=== PATIENT | female | born 2000 | race African-American/Black ===

== ENCOUNTER → 2018-06-08 | Outpatient (CLI) | payer OTHER ==
[2015-10-06 05:40] VITALS: BP 94/46
[~2018-06-08] MED LIST: METR70GE14 VG; MULT-130 PO; PROM25SU32 RC
--- NOTE | 2018-06-08 10:12 | KCIC ---
EXAM: Ultrasound OB <14 weeks CLINICAL HISTORY: Evaluate for intrauterine gestation and dates COMPARISON: None available. TECHNIQUE: transabdominal sonography was performed FINDINGS: An intrauterine gestational sac is present. An embryo is identified .Cardiac activity is visualized and documented at a rate of 123 beats per minute. There is no subchorionic fluid collection. Based on a crown rump length averaging 0.37 cm, the estimated gestational age is 6 weeks, 0 days. Estimated date of delivery is 02/01/2019. The right ovary measures 4.4 x 2 x 2.7 cm. The left ovary measures 3.2 x 1.4 x 2.6 cm. No definite adnexal mass. There is no pelvic free fluid. IMPRESSION: 1. Single live intrauterine gestation with mean sonographic age of 6 weeks,0 days. The estimated date of delivery is 02/01/19. 2. No abnormal adnexal masses Electronically signed by: Sin Mckeon MD (06/08/2018 10:09 AM) [facility]
== END | disposition home or self-care (01) ==
LOC: KCIC US 07:45
PROVIDERS: ATTEND Family Medicine
DX: Z34.91 Encounter for supervision of normal pregnancy, unspecified, first trimester (principal); Z3A.01 Less than 8 weeks gestation of pregnancy
CPT/HCPCS: 76801

== ENCOUNTER 2018-06-16 14:54 | Emergency (ER) | payer OTHER ==
[~2018-06-16] VITALS: Ht 175.3 cm; Wt 104.3 kg
[~2018-06-16 14:54] MED LIST changes: -METR70GE14 VG; -PROM25SU32 RC
[2018-06-16 15:00] VITALS: BP 138/64
[2018-06-16] MEDS ORDERED: IV NORMAL SALINE 1000ML BAG 1,000 ML IV SCH (15:18)
[2018-06-16] MEDS ORDERED: PROMETHAZINE 12.5 MG TABLET. PO ONE (15:30)
--- NOTE | 2018-06-16 15:30 | PHYS DOC ---
Past Medical History Past Medical History: No Pertinent History Past Surgical History: Alcohol Use: None Drug Use: None Adult General Chief Complaint Chief Complaint: VOMITING IN HPI HPI Patient is a 17-year-old female, at about 7 weeks of gestational presents to the emergency department for evaluation. This patient states for the past week she has had "morning sickness". She states she has a decreased appetite, and has been vomiting when she tries to eat. She has not had any significant abdominal pain. She denies any significant vaginal bleeding or discharge, urinary symptoms, or hematemesis. She has not had any diarrhea. She has had care with her primary care provider, Dr. Whipple, and has had an ultrasound which she reports was normal. There are no alleviating or exacerbating factors to her symptoms. She is currently taking vitamins , no other medications. Review of Systems Review of Systems Constitutional: Denies fever or chills [] Eyes: Denies change in visual acuity, redness, or eye pain [] HENT: Denies nasal congestion or sore throat [] Respiratory: Denies cough or shortness of breath [] Cardiovascular: The patient denies any shortness of breath, chest pain, palpitations, or orthopnea [] GI: Denies abdominal pain, bloody stools or diarrhea [] : Denies dysuria or hematuria [] Musculoskeletal: Denies back pain or joint pain [] Integument: Denies rash or skin lesions [] Neurologic: Denies headache, focal weakness or sensory changes [] Endocrine: Denies polyuria or polydipsia [] All other systems were reviewed and found to be within normal limits, except as documented in this note. Current Medications Current Medications Current Medications Medications (Trade) Dose Ordered Sig/Vance Start Time Stop Time Status Last Admin Dose Admin Prochlorperazine Edisylate (Compazine) 10 mg 1X ONCE 06/16/18 15:45 06/16/18 15:46 DC 06/16/18 15:48 10 MG Promethazine HCl (Phenergan) 25 mg 1X ONCE 06/16/18 15:30 06/16/18 15:41 DC Sodium Chloride 1,000 ml @ 1,000 mls/hr Q1H 06/16/18 15:18 06/16/18 16:17 06/16/18 15:36 1,000 MLS/HR Allergies Allergies Allergies Coded Allergies Type Severity Reaction Last Updated Verified No Known Drug Allergies 06/17/15 No Physical Exam Physical Exam PHYSICAL EXAM: CONSTITUTIONAL: Well developed, well nourished HEAD: normocephalic, atraumatic EENT: PERRL, EOMI. Conjunctivae normal color, sclerae non-icteric; moist mucous membranes. NECK: Supple, non-tender; no meningismus. LUNGS: Lungs CTA, breathing even and unlabored. Normal air movement. HEART: Regular rate and rhythm, no murmur CHEST: No deformity; non-tender ABDOMEN: The abdomen is soft, and non-tender, no masses or bruits. EXTREM: Normal ROM; no deformity, no calf tenderness. Normal pulses palpable in all extremities. There is no pedal edema. SKIN: No rash; no diaphoresis NEURO: Alert; normal speech and cognition; CN's grossly intact; strength grossly intact without focal deficit. BACK: No CVA TTP. Current Patient Data Vital Signs Vital Signs Date Time Temp Pulse Resp B/P (MAP) Pulse Ox O2 Delivery O2 Flow Rate FiO2 06/16/18 15:00 98.4 71 18 138/64 (88) 97 Room Air 98.4 Lab Values Laboratory Tests Test 06/16/18 12:08 06/16/18 15:09 06/16/18 15:40 Urine Collection Type Unknown Urine Color Yellow Urine Clarity Cloudy Urine pH 7.5 Urine Specific Baylis 1.025 Urine Protein Negative mg/dL (NEG-TRACE) Urine Glucose (UA) Negative mg/dL (NEG) Urine Ketones (Stick) 40 mg/dL (NEG) Urine Blood Negative (NEG) Urine Nitrite Negative (NEG) Urine Bilirubin Negative (NEG) Urine Urobilinogen Dipstick 1.0 mg/dL (0.2 mg/dL) Urine Leukocyte Esterase Large (NEG) Urine RBC 0 /HPF (0-2) Urine WBC >40 /HPF (0-4) Urine Squamous Epithelial Cells Many /LPF Urine Bacteria Many /HPF (0-FEW) Urine Mucus Marked /LPF Urine Trichomonas Present POC Urine HCG, Qualitative Hcg positive (Negative) White Blood Count 6.2 x10^3/uL (4.0-11.0) Red Blood Count 4.29 x10^6/uL (3.50-5.40) Hemoglobin 12.0 g/dL (12.0-15.5) Hematocrit 36.3 % (36.0-47.0) Mean Corpuscular Volume 85 fL (79-100) Mean Corpuscular Hemoglobin 28 pg (25-35) Mean Corpuscular Hemoglobin Concent 33 g/dL (31-37) Red Cell Distribution Width 14.8 % (11.5-14.5) H Platelet Count 263 x10^3/uL (140-400) Neutrophils (%) (Auto) 70 % (31-73) Lymphocytes (%) (Auto) 21 % (24-48) L Monocytes (%) (Auto) 8 % (0-9) Eosinophils (%) (Auto) 1 % (0-3) Basophils (%) (Auto) 1 % (0-3) Neutrophils # (Auto) 4.4 x10^3uL (1.8-7.7) Lymphocytes # (Auto) 1.3 x10^3/uL (1.0-4.8) Monocytes # (Auto) 0.5 x10^3/uL (0.0-1.1) Eosinophils # (Auto) 0.0 x10^3/uL (0.0-0.7) Basophils # (Auto) 0.0 x10^3/uL (0.0-0.2) Laboratory Tests 06/16/18 15:40 EKG EKG [] Radiology/Procedures Radiology/Procedures [] Course & Med Decision Making Course & Med Decision Making Pertinent Lab studies reviewed. (See chart for details) [4:05 PM: The patient notified her nursing she would like to leave the hospital immediately. I went to speak with the patient but was unable to convince her to stay and finish her treatment. She has received about 500 mL of IV fluids. Her urinalysis has been reviewed and it looks that she has Trichomonas and possibly a UTI as well. She declined further pelvic evaluation at this time but has an appointment with her [employer], which I encouraged her to keep.] Patient initially declined Phenergan tablets that were prescribed in the ER, as she states she cannot swallow pills. Thus, she will need Flagyl vaginally and Phenergan suppositories. Dragon Disclaimer Dragon Disclaimer This electronic medical record was generated, in whole or in part, using a voice recognition dictation system. Departure Departure Impression: Primary Impression: Nausea and vomiting during Additional Impressions: Trichomonas infection UTI (urinary tract infection) Disposition: 07 AGAINST MEDICAL ADVICE Condition: STABLE Referrals: JOHANNA WHIPPLE MD (PCP) Patient Instructions: Hyperemesis Gravidarum, Trichomoniasis Additional Instructions: Return to medical care for any new or worsening symptoms, or if your agreeable to complete her ER visit and undergo further care. Scripts Metronidazole (METROGEL-VAGINAL) 70 Gm Gel.w.appl 1 APPFUL VG QHS for 7 Days, #7 EA Prov: ARSALAN HODGE MD 06/16/18 Promethazine HCl (Phenergan) 25 Mg Supp.rect 25 MG RC Q6H for Nausea/vomiting, #15 SUPP.RECT Prov: ARSALAN HODGE MD 06/16/18 Problem Qualifiers ARSALAN HODGE MD Jun 16, 2018 15:30
[2018-06-16 15:31] LABS: BILIRUBIN,URINE NEGATIVE (NEG); CLARITY,URINE CLOUDY; COLOR,URINE YELLOW; NITRITE,URINE NEGATIVE (NEG); PH,URINE 7.5; PROTEIN,URINE NEGATIVE (NEG-TRACE)
[2018-06-16 15:43] LABS: SQUAMOUS EPITHELIAL CELL,UR MANY /LPF
[2018-06-16 15:44] LABS: BACTERIA,URINE MANY /HPF (0-FEW); RBC,URINE 0 /HPF (0-2); TRICHOMONAS,URINE PRESENT; WBC,URINE >40 /HPF (0-4)
[2018-06-16 15:45] LABS: BASO % 1 % (0-3); EOS % 1 % (0-3); HEMATOCRIT 36.3 % (36.0-47.0); LYMPH # 1.3 x10^3/uL (1.0-4.8); LYMPH % 21 % (24-48); MEAN CORPUSCULAR HEMOGLOBIN 28 pg (25-35); MEAN CORPUSCULAR HGB CONC 33 g/dL (31-37); MEAN CORPUSCULAR VOLUME 85 fL (79-100); MONO # 0.5 x10^3/uL (0.0-1.1); MONO % 8 % (0-9); NEUT # 4.4 x10^3uL (1.8-7.7); NEUT % 70 % (31-73); PLATELET COUNT 263 x10^3/uL (140-400); RED BLOOD COUNT 4.29 x10^6/uL (3.50-5.40); RED CELL DISTRIBUTION WIDTH 14.8 % (11.5-14.5); WHITE BLOOD COUNT 6.2 x10^3/uL (4.0-11.0)
[2018-06-16] MEDS ORDERED: PROCHLORPERAZINE 10 MG/2 ML VIAL. IV ONE (15:45)
[2018-06-16 16:05] LABS: CREATININE 0.6 mg/dL (0.6-1.0); GFR 155.8; POTASSIUM 3.8 mmol/L (3.5-5.1)
[2018-06-16 16:10] LABS: ALBUMIN 3.4 g/dL (3.4-5.0); ALBUMIN/GLOBULIN RATIO 0.7 (1.0-1.7); TOTAL BILIRUBIN 0.2 mg/dL (0.2-1.0)
[2018-06-16] MEDS ORDERED: PROM25SU32 RC (16:12)
[2018-06-16] MEDS ORDERED: METR70GE14 VG (16:12)
== END 2018-06-16 16:05 | disposition left against medical advice (07) ==
LOC: ER 14:54
DX: O23.41 Unspecified infection of urinary tract in pregnancy, first trimester (principal); O23.591 Infection of other part of genital tract in pregnancy, first trimester; A59.9 Trichomoniasis, unspecified; O21.9 Vomiting of pregnancy, unspecified; Z3A.01 Less than 8 weeks gestation of pregnancy
CPT/HCPCS: 36415; 80053; 81001; 81025; 83690; 85025; 87086; 96361; 96374; 99283; J0780; J7030; Q0169

== ENCOUNTER → 2018-09-20 | Outpatient (CLI) | payer OTHER ==
[~2018-09-20] MED LIST changes: +METR70GE14 VG; +PROM25SU32 RC
--- NOTE | 2018-09-20 17:00 | RAD ---
Obstetrical ultrasound, 09/20/2018: HISTORY: Routine screening There is a single intrauterine fetus in a cephalic orientation. The biparietal diameter measures 5.2 cm compatible with a gestational age of 21-22 weeks. The average gestational age based on all of the measurements is 21 weeks and 5 days yielding a sonographic EDC of 01/26/2019. This correlates well with the EDC of 02/01/2019 established on the previous ultrasound exam of 06/08/2018. Normal activity and heart motion were seen. The heart rate is 150 bpm. A four-chamber heart is evident. Fluid is identified in the bladder and stomach. The visualized portions of the kidneys and spine are unremarkable. A three-vessel umbilical cord is identified with a normal cord insertion site. A normal amount of amniotic fluid is present. The placenta is located anteriorly. There is no evidence of placenta previa. The cervical length is approximately 4 cm. IMPRESSION: Single viable intrauterine fetus of 21-22 weeks gestational age demonstrating satisfactory interval growth since 06/08/2018. Electronically signed by: Ruddy Arango MD (09/20/2018 4:57 PM) [facility]
== END | disposition home or self-care (01) ==
LOC: US 14:21
PROVIDERS: ATTEND Family Medicine
DX: Z34.92 Encounter for supervision of normal pregnancy, unspecified, second trimester (principal); Z3A.22 22 weeks gestation of pregnancy
CPT/HCPCS: 76805

== ENCOUNTER 2020-06-10 19:04 | Emergency (ER) | payer MEDICAID, OTHER ==
[~2020-06-10] VITALS: Ht 175.3 cm; Wt 109.1 kg
--- NOTE | 2020-06-10 19:56 | RAD ---
PA lateral chest x-rays HISTORY: Chest wall pain. FINDINGS: Heart size normal. Mediastinal silhouette is normal. No pneumothorax, pulmonary opacities o r pleural effusions. Bones are unremarkable. IMPRESSION: No acute process. Electronically signed by: Jean Carlos Mccracken MD (06/10/2020 7:53 PM) [facility]
--- NOTE | 2020-06-10 20:50 | PHYS DOC ---
Past Medical History Past Medical History: No Pertinent History Past Surgical History: Smoking Status: Never Smoker Alcohol Use: None Drug Use: None Adult General Chief Complaint Chief Complaint: BREAST PROBLEM HPI HPI Patient is a 19 year old female presented to the emergency department complaining of new onset of left anterior chest wall pain and swelling adjacent to left breast. Patient states that she noted a lump of the left medial breast margin. States that noticed that this afternoon and states that it has increased in size and severity. Notes pain in the area. Denies any fever, chills, nausea, vomiting, abnormal or discharge. Review of Systems Review of Systems Constitutional: Denies fever or chills [] Eyes: Denies change in visual acuity, redness, or eye pain [] HENT: Denies nasal congestion or sore throat [] Respiratory: Denies cough or shortness of breath [] Cardiovascular: No additional information not addressed in HPI [] GI: Denies abdominal pain, nausea, vomiting, bloody stools or diarrhea [] : Denies dysuria or hematuria [] Musculoskeletal: Denies back pain or joint pain [] Integument: Denies rash or skin lesions [] Neurologic: Denies headache, focal weakness or sensory changes [] Endocrine: Denies polyuria or polydipsia [] All other systems were reviewed and found to be within normal limits, except as documented in this note. Allergies Allergies Allergies Coded Allergies Type Severity Reaction Last Updated Verified No Known Drug Allergies 06/17/15 No Physical Exam Physical Exam Constitutional: Well developed, well nourished, no acute distress, non-toxic appearance. [] HENT: Normocephalic, atraumatic, bilateral external ears normal, oropharynx moist, no oral exudates, nose normal. [] Eyes: PERRLA, EOMI, conjunctiva normal, no discharge. [] Neck: Normal range of motion, no tenderness, supple, no stridor. [] Cardiovascular:Heart rate regular rhythm, no murmur [] Lungs & Thorax: Bilateral breath sounds clear to auscultation [] Abdomen: Bowel sounds normal, soft, no tenderness, no masses, no pulsatile masses. [] Skin: Warm, dry, no erythema, no rash. [] Back: No tenderness, no CVA tenderness. [] Extremities: No tenderness, no cyanosis, no clubbing, ROM intact, no edema. [] Neurologic: Alert and oriented X 3, normal motor function, normal sensory function, no focal deficits noted. [] Psychologic: Affect normal, judgement normal, mood normal. [] Current Patient Data Vital Signs Vital Signs Date Time Temp Pulse Resp B/P (MAP) Pulse Ox O2 Delivery O2 Flow Rate FiO2 06/10/20 19:14 97.9 83 16 146/59 (88) 99 Room Air 97.9 Lab Values Laboratory Tests Test 06/10/20 19:26 POC Urine HCG, Qualitative Hcg negative (Negative) EKG EKG [] Radiology/Procedures Radiology/Procedures [] Course & Med Decision Making Course & Med Decision Making Pertinent Labs and Imaging studies reviewed. (See chart for details) 19F with nonspecific lesion on the anterior chest wall in the left breast margin. Will obtain x-ray to make sure there is no evidence of acute calcification. Bedside ultrasound demonstrates no underlying fluid collection or drainable abscess. Suspect fibrocystic change. Dragon Disclaimer Dragon Disclaimer This electronic medical record was generated, in whole or in part, using a voice recognition dictation system. Departure Departure Impression: Primary Impression: Fibrocystic breast changes Disposition: 01 DC HOME SELF CARE/HOMELESS Condition: GOOD Referrals: JOHANNA WHIPPLE MD (PCP) Patient Instructions: Fibrocystic Breast Changes, [id number] Additional Instructions: EMERGENCY DEPARTMENT GENERAL DISCHARGE INSTRUCTIONS Thank you for coming to [facility] Emergency Department (ED) today and trusting us with you care. We trust that you had a positive experience in our Emergency Department. If you wish to speak to the department management, you may call the Director at [phone]. YOUR FOLLOW UP INSTRUCTIONS ARE FOLLOWS: 1. Do you have a private Doctor? If you do not have a private doctor, please ask for a resource list of physicians or clinics that may be able to assist you with follow up care. 2. The Emergency Physicain has interpreted your x-rays. The X-Ray specialist will also review them. If there is a change in the findings, you will be notified in 48 hours when at all possible. 3. A lab test or culture has been done, your results will be reviewed and you will be notified if you need a change in treatment. ADDITIONAL INSTRUCTIONS AND INFORMATION: 1. Your care today has been supervised by a physician who is specially trained in emergency care. Many problems require more than one evaluation for a complete diagnosis and treatment. We recommend that you schedule your follow up appointment as recommended to ensure complete treatment of you illness or injury. If you are unable to obtain follow up care and continue to have a problem, or if your condition worsens, we recommend that you return to the ED. 2. We are not able to safely determine your condition over the phone nor are we able to give sound medical advice over the phone. For these safety reasons, if you call for medical advice we will ask you to come to the ED for further evaluation. 3. If you have any questions regarding these discharge instructions please call the ED at [phone]. SAFETY INFORMATION: In the interest of safety, wellness, and injury prevention; we encourage you to wear your sealbelt, if you smoke; quite smoking, and we encourage family to use a protective helmet for bicycling and other sporting events that present an increased risk for head injury. IF YOUR SYMPTOMS WORSEN OR NEW SYMPTOMS DEVELOP, OR YOU HAVE CONCERNS ABOUT YOUR CONDITION; OR IF YOUR CONDITION WORSENS WHILE YOU ARE WAITING FOR YOUR FOLLOW UP APPOINTMENT; EITHER CONTACT YOUR PRIMARY CARE DOCTOR, THE PHYSICIAN WHOSE NAME AND NUMBER YOU WERE GIVEN, OR RETURN TO THE ED IMMEDIATELY. Scripts Naproxen (NAPROXEN) 500 Mg Tablet 1 TAB PO BID for pain for 30 Days, #60 TAB 0 Refills Prov: MOHAMUD NI MD 06/10/20 Sulfamethoxazole/Trimethoprim (BACTRIM DS TABLET) 1 Each Tablet 1 TAB PO BID for infection, #14 TAB Prov: MOHAMUD NI MD 06/10/20 MOHAMUD NI MD Jun 10, 2020 20:50
[2020-06-10] MEDS ORDERED: NAPR-514 PO (21:16)
[2020-06-10] MEDS ORDERED: SULF1TAB24 PO (21:16)
[2020-06-10 21:21] VITALS: BP 137/62
== END 2020-06-10 21:26 | disposition home or self-care (01) ==
LOC: ER 19:04
DX: N60.12 Diffuse cystic mastopathy of left breast (principal); R07.89 Other chest pain; R60.0 Localized edema; Z98.890 Other specified postprocedural states
CPT/HCPCS: 71046; 81025; 99283

== ENCOUNTER 2021-06-19 23:34 | Emergency (ER) | payer MEDICAID ==
[~2021-06-19] VITALS: Ht 175.3 cm; Wt 122.7 kg
[~2021-06-19 23:34] MED LIST changes: +NAPR-514 PO; +SULF1TAB24 PO
[2021-06-19 23:51] VITALS: BP 134/70
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
== END 2021-06-20 00:06 | disposition home or self-care (01) ==
LOC: ER 23:34
DX: S20.152A Superficial foreign body of breast, left breast, initial encounter (principal); X58.XXXA Exposure to other specified factors, initial encounter; Y93.89 Activity, other specified; Y92.89 Other specified places as the place of occurrence of the external cause; Y99.8 Other external cause status
CPT/HCPCS: 99281; 99284

== ENCOUNTER → 2021-07-09 | Outpatient (CLI) | payer MEDICAID ==
[2021-06-19 23:51] VITALS: BP 134/70
== END ==
LOC: SPEC 11:41
PROVIDERS: ATTEND Obstetrics & Gynecology
DX: N89.8 Other specified noninflammatory disorders of vagina (principal)
CPT/HCPCS: Q0111